=== PATIENT | female | born 1980 | race African-American/Black ===

== ENCOUNTER 2019-09-24 09:31 | Emergency (ER) | payer MEDICAID ==
[~2019-09-24] VITALS: Ht 157.5 cm; Wt 116.0 kg
[2019-09-24 12:18] LABS: BASOPHILS % 0.1 % (0.0-2.0); CLARITY URINE CLOUDY (CLEAR); COLOR URINE YELLOW (YELLOW); EOSINOPHILS % 0.2 % (0.0-5.0); HEMATOCRIT. 39.3 % (36.0-48.0); HEMOGLOBIN. 13.7 g/dL (12.0-16.0); KETONES URINE TRACE (NEGATIVE); LEUKOCYTE ESTERASE URINE TRACE (NEGATIVE); LYMPHOCYTES % 17.1 % (20.0-50.0); MEAN CORPUSCULAR HEMOGLOBIN 29.8 pg (28.0-32.0); MEAN CORPUSCULAR VOLUME 85.6 fL (81.0-99.0); MEAN PLATELET VOLUME 7.7 fl (7.4-10.4); MONOCYTES % 5.3 % (2.0-8.0); NEUTROPHILS % 77.3 % (40.0-76.0); NITRITE URINE NEGATIVE (NEGATIVE); OCCULT BLOOD URINE 3+ (NEGATIVE); PLATELET 247 x1000/uL (130-400); PROTEIN URINE NEGATIVE (NEGATIVE); RED BLOOD CELL COUNT 4.59 mill/uL (4.2-5.4); RED CELL DISTRIBUTION WIDTH 12.8 % (11.6-14.6); SPECIFIC GRAVITY URINE 1.026 (1.005-1.030); UROBILINOGEN URINE 0.2 E.U./dL (0.2-1.0)
[2019-09-24 12:20] LABS: CHLORIDE 105 mEq/L (98-107)
[2019-09-24 12:41] LABS: B-HCG QUANTITATIVE 85780 mIU/mL (<3)
[2019-09-24 15:28] VITALS: BP 107/67
== END 2019-09-24 15:30 | disposition home or self-care (01) ==
LOC: ER 09:47
DX: O20.0 Threatened abortion (principal); O23.11 Infections of bladder in pregnancy, first trimester; Z3A.09 9 weeks gestation of pregnancy; O26.891 Other specified pregnancy related conditions, first trimester; R03.0 Elevated blood-pressure reading, without diagnosis of hypertension
CPT/HCPCS: 36415; 76801; 80053; 81003; 84702; 85025; 86850; 86900; 99285

== ENCOUNTER 2019-10-11 11:08 | Emergency (ER) | payer MEDICAID ==
[~2019-10-11] VITALS: Ht 157.5 cm; Wt 116.0 kg
[2019-10-11] MEDS ORDERED: SODIUM CHLORIDE 0.9% 1,000 ML IV ONE (12:58)
[2019-10-11 13:13] LABS: BASOPHILS % 0.3 % (0.0-2.0); CLARITY URINE CLOUDY (CLEAR); COLOR URINE YELLOW (YELLOW); EOSINOPHILS % 0.5 % (0.0-5.0); HEMATOCRIT. 38.3 % (36.0-48.0); HEMOGLOBIN. 13.2 g/dL (12.0-16.0); KETONES URINE TRACE (NEGATIVE); LEUKOCYTE ESTERASE URINE NEGATIVE (NEGATIVE); LYMPHOCYTES % 18.4 % (20.0-50.0); MEAN CORPUSCULAR HEMOGLOBIN 29.1 pg (28.0-32.0); MEAN CORPUSCULAR VOLUME 84.4 fL (81.0-99.0); MEAN PLATELET VOLUME 7.4 fl (7.4-10.4); MONOCYTES % 6.6 % (2.0-8.0); NEUTROPHILS % 74.2 % (40.0-76.0); NITRITE URINE NEGATIVE (NEGATIVE); OCCULT BLOOD URINE 2+ (NEGATIVE); PLATELET 247 x1000/uL (130-400); PROTEIN URINE NEGATIVE (NEGATIVE); RED BLOOD CELL COUNT 4.54 mill/uL (4.2-5.4); RED CELL DISTRIBUTION WIDTH 12.7 % (11.6-14.6); SPECIFIC GRAVITY URINE 1.025 (1.005-1.030)
[2019-10-11 13:18] LABS: CHLORIDE 106 mEq/L (98-107)
[2019-10-11 13:41] LABS: B-HCG QUANTITATIVE 54966 mIU/mL (<3)
[2019-10-11] MEDS ORDERED: CEFTRIAXONE 1 G PREMIX 50 ML IV ONE (14:30)
[2019-10-11 15:57] VITALS: BP 149/80
== END 2019-10-11 16:00 | disposition home or self-care (01) ==
LOC: ER 11:08
DX: O20.0 Threatened abortion (principal); O23.41 Unspecified infection of urinary tract in pregnancy, first trimester; Z90.49 Acquired absence of other specified parts of digestive tract; Z3A.12 12 weeks gestation of pregnancy
CPT/HCPCS: 36415; 76801; 76817; 80053; 81003; 81025; 83605; 84145; 84702; 85025; 86850; 86900; 86901; 87040; 87086; 96361; 96365; 99284; J0696; J7030

== ENCOUNTER 2019-12-06 06:54 | Emergency (ER) | payer MEDICAID ==
[~2019-12-06] VITALS: Ht 157.5 cm; Wt 118.0 kg
[2019-12-06] MEDS ORDERED: SODIUM CHLORIDE 0.9% 1,000 ML IV ONE (07:40)
[2019-12-06] MEDS ORDERED: ACETAMINOPHEN 325MG TABLET PO ONE (07:45)
[2019-12-06 08:14] LABS: BASOPHILS % 0.1 % (0.0-2.0); EOSINOPHILS % 0.6 % (0.0-5.0); HEMATOCRIT. 35.4 % (36.0-48.0); HEMOGLOBIN. 12.2 g/dL (12.0-16.0); LYMPHOCYTES % 16.7 % (20.0-50.0); MEAN CORPUSCULAR HEMOGLOBIN 28.8 pg (28.0-32.0); MEAN CORPUSCULAR VOLUME 83.7 fL (81.0-99.0); MEAN PLATELET VOLUME 7.3 fl (7.4-10.4); MONOCYTES % 5.8 % (2.0-8.0); NEUTROPHILS % 76.8 % (40.0-76.0); PLATELET 230 x1000/uL (130-400); RED BLOOD CELL COUNT 4.23 mill/uL (4.2-5.4); RED CELL DISTRIBUTION WIDTH 13.5 % (11.6-14.6)
[2019-12-06 08:20] LABS: CHLORIDE 108 mEq/L (98-107)
[2019-12-06 08:26] LABS: PROTHROMBIN TIME 10.4 sec (9.6-11.0)
[2019-12-06 08:27] LABS: CLARITY URINE CLEAR (CLEAR); COLOR URINE YELLOW (YELLOW); KETONES URINE 1+ (NEGATIVE); LEUKOCYTE ESTERASE URINE 1+ (NEGATIVE); NITRITE URINE NEGATIVE (NEGATIVE); OCCULT BLOOD URINE 1+ (NEGATIVE); PH URINE 5.5 (4.5-8.0); PROTEIN URINE NEGATIVE (NEGATIVE); SPECIFIC GRAVITY URINE 1.024 (1.005-1.030)
[2019-12-06] MEDS ORDERED: CEPHALEXIN 250MG CAPSULE PO NR (10:15)
[2019-12-06 12:20] VITALS: BP 111/74
== END 2019-12-06 12:38 | disposition home or self-care (01) ==
LOC: ER 06:54
DX: O23.42 Unspecified infection of urinary tract in pregnancy, second trimester (principal); Z3A.20 20 weeks gestation of pregnancy
CPT/HCPCS: 36415; 76770; 76805; 76817; 80053; 81003; 81025; 83690; 85025; 85610; 87086; 96360; 96361; 99284; J7030

== ENCOUNTER → 2019-12-06 07:15 | Observation (INO) | payer MEDICAID | END | disposition home or self-care (01) | LOC: L&D 07:15 | PROVIDERS: ADMIT Obstetrics & Gynecology; ATTEND Obstetrics & Gynecology | DX: O23.42 Unspecified infection of urinary tract in pregnancy, second trimester (principal); Z3A.20 20 weeks gestation of pregnancy | CPT/HCPCS: G0378 ==

== ENCOUNTER 2021-07-30 20:34 | Emergency (ER) | payer MEDICAID, OTHER ==
[~2021-07-30] VITALS: Ht 157.5 cm; Wt 118.0 kg
[2021-07-31] MEDS ORDERED: SODIUM CHLORIDE 0.9% 1,000 ML IV ONE (01:00)
[2021-07-31 01:06] LABS: BASOPHILS % 0.2 % (0.0-2.0); EOSINOPHILS % 0.8 % (0.0-5.0); HEMATOCRIT. 30.3 % (36.0-48.0); HEMOGLOBIN. 9.5 g/dL (12.0-16.0); LYMPHOCYTES % 22.9 % (20.0-50.0); MEAN CORPUSCULAR HEMOGLOBIN 21.9 pg (28.0-32.0); MEAN CORPUSCULAR VOLUME 69.7 fL (81.0-99.0); MEAN PLATELET VOLUME 7.6 fl (7.4-10.4); MONOCYTES % 7.6 % (2.0-8.0); NEUTROPHILS % 68.5 % (40.0-76.0); PLATELET 318 x1000/uL (130-400); RED BLOOD CELL COUNT 4.34 mill/uL (4.2-5.4); RED CELL DISTRIBUTION WIDTH 17.5 % (11.6-14.6)
[2021-07-31 01:13] LABS: CHLORIDE 109 mEq/L (98-107)
[2021-07-31 01:37] LABS: B-HCG QUANTITATIVE 2334 mIU/mL (<3)
[2021-07-31 02:13] LABS: CLARITY URINE CLEAR (CLEAR); COLOR URINE YELLOW (YELLOW); KETONES URINE TRACE (NEGATIVE); LEUKOCYTE ESTERASE URINE NEGATIVE (NEGATIVE); NITRITE URINE NEGATIVE (NEGATIVE); OCCULT BLOOD URINE NEGATIVE (NEGATIVE); PH URINE 5.5 (4.5-8.0); PROTEIN URINE TRACE (NEGATIVE); SPECIFIC GRAVITY URINE 1.031 (1.005-1.030); UROBILINOGEN URINE 0.2 E.U./dL (0.2-1.0)
[2021-07-31] MEDS ORDERED: ACETAMINOPHEN 500MG TABLET PO SCH (03:45)
[2021-07-31 04:26] LABS: PLATELET ESTIMATE NORMAL
[2021-07-31] MEDS ORDERED: CEPH500T MT (04:28)
[2021-07-31 04:43] VITALS: BP 136/76
== END 2021-07-31 04:47 | disposition home or self-care (01) ==
LOC: ER 20:34
DX: O26.891 Other specified pregnancy related conditions, first trimester (principal); R10.31 Right lower quadrant pain; O09.521 Supervision of elderly multigravida, first trimester; Z3A.01 Less than 8 weeks gestation of pregnancy
CPT/HCPCS: 36415; 76801; 80053; 81003; 81025; 84702; 85025; 86850; 86900; 86901; 96360; 99285; J7030